=== PATIENT | male | born 1995 | race Caucasian/White ===

== ENCOUNTER 2025-02-06 21:02 | Emergency (ER) | payer OTHER ==
[~2025-02-06] VITALS: Ht 175.3 cm; Wt 70.3 kg
[2025-02-06 22:46] VITALS: BP 161/79; TEMP 98.4; O2SAT 97
[2025-02-06] MEDS ORDERED: IBUP-1957 PO (22:52)
== END 2025-02-06 23:08 | disposition home or self-care (01) ==
LOC: ER 21:04
DX: M75.102 Unspecified rotator cuff tear or rupture of left shoulder, not specified as traumatic (principal); Z79.1 Long term (current) use of non-steroidal anti-inflammatories (NSAID); Z60.2 Problems related to living alone